=== PATIENT | female | born 1975 | race Caucasian/White ===

== ENCOUNTER 2016-07-15 18:12 | Emergency (ER) | payer OTHER ==
[2016-07-15] MEDS ORDERED: BACIGUENT PACKET TP ONE (18:19)
[2016-07-15] MEDS ORDERED: Adacel Vial IM ONE ×2 (18:19→18:25)
[2016-07-15] MEDS ORDERED: MOTRIN 600 MG PO ONE (18:20)
[2016-07-15] MEDS ORDERED: BACIGUENT PACKET ONE (18:25)
[2016-07-15] MEDS ORDERED: MOTRIN 600 MG ONE (18:25)
--- NOTE | 2016-07-15 18:26 | ERPHSYRPT ---
- History of Present Illness Time Seen by Provider: 07/15/16 18:19 Source: patient, family Physician History: CC: redness right wrist Hx: 41 y/o healthy pt of [facility]. She was using a brace with icy hot for tendonitis. Might have spilled something in it. Unsure last tetanus vaccine. States not . Occurred today. Extremities Pain Location: wrist: right - Review of Systems Constitutional: No Fever Skin: Skin Lesions Neurological: No Focal Weakness, No Parasthesia - Past Medical History Pertinent Past Medical History: No - Social History Patient Lives Alone: No - Physical Exam General Appearance: alert Eyes, Ears, Nose, Throat Exam: moist mucous membranes Neck Exam: supple Cardiovascular/Respiratory Exam: normal breath sounds, regular rate/rhythm Neuro/Tendon Exam: normal sensation, normal motor functions Mental Status Exam: alert, oriented x 3, cooperative Skin Exam: warm, dry, other (2 non-circumferential patches of redness with some mild blistering on right wrist. Good pulse. ) - Course Nursing assessment & vital signs reviewed: Yes Ordered Tests: Active Orders 24 hr Category Date Time Status Wound Care STAT Care 07/15/16 18:19 Active Medication Summary Generic Name Dose Route Start Last Admin Trade Name Freq PRN Reason Stop Dose Admin Bacitracin 0.9 gm 07/15/16 18:19 Baciguent Packet TP 07/15/16 18:20 STAT ONE Diphtheria/Tetanus/Acell Pertussis 0.5 ml 07/15/16 18:19 Adacel Vial IM 07/15/16 18:20 .ONCE ONE Ibuprofen 600 mg 07/15/16 18:20 Motrin 600 Mg PO 07/15/16 18:21 STAT ONE - Progress Progress Note: 07/15/16 18:25 Will treat as burn. Can not rule out contact allergy or frictional trauma. Counseled pt/family regarding: diagnosis, need for follow-up - Departure Time of Disposition: 18:26 Departure Disposition: Home Clinical Impression: Burn of right wrist Qualifiers: Encounter type: initial encounter Burn degree: first degree Qualified Code(s): T23.171A - Burn of first degree of right wrist, initial encounter Condition: Stable Critical Care Time: No Referrals: SAMMI COUGHLIN, [employer] [Primary Care Provider] - Instructions: Take Care of a Burn Additional Instructions: Cleanse twice a day and apply polysporin ointment. Ibuprofen as directed for discomfort. Stop brace and icy hot. Prescriptions: Bacitracin/Polymyxin B Sulfate [Polysporin Ointment] 28.3 gm TP BID #1 oint...g.
[2016-07-15 18:48] VITALS: BP 134/70; PULSE 73; O2SAT 100
== END 2016-07-15 18:50 | disposition home or self-care (01) ==
LOC: ED 18:12
DX: T23.171A Burn of first degree of right wrist, initial encounter (principal)
CPT/HCPCS: 90471; 90715; 99283; 99284

== ENCOUNTER 2017-02-28 11:16 | Emergency (ER) | payer SELFPAY ==
[2017-02-28] MEDS ORDERED: Xylocaine 2%-Epi 1:100,000 MDV IJ ONE ×2 (12:59→13:00)
--- NOTE | 2017-02-28 13:39 | ERPHSYRPT ---
- History of Present Illness Time Seen by Provider: 02/28/17 12:43 Source: patient Patient Subjective Stated Complaint: abscess to top of forehead Triage Nursing Assessment: ambulated to room per self. skin w/d, color normal, resp eay. large pecan size abscess noted to top of mid forehead. no drainage noted. Physician History: CC: forehead cyst Hx: 42 y/o paient with no local doctor. She has hx of scalp cysts. Noted anterior forehead cyst inside hairline was growing and sore yesterday, much worse this AM. She came to ER. It is red, painful. No fever. She was unsure last tetanus vaccine but computer reports this year. All to PCN but able to take keflex. Timing/Duration: yesterday Allergies/Adverse Reactions: Penicillins Allergy (Verified 02/28/17 12:18) Hx Tetanus, Diphtheria Vaccination/Date Given: No Hx Influenza Vaccination/Date Given: No Hx Pneumococcal Vaccination/Date Given: No - Review of Systems Constitutional: No Fever, No Chills Eyes: No Vision Changes, No Double Vision Skin: Skin Lesions - Past Medical History Pertinent Past Medical History: Yes Cardiac History: Hypertension - Past Surgical History Past Surgical History: Yes Female Surgical History: Section, Tubal Ligation - Social History Smoking Status: Current every day smoker How long have you smoked: 15 Exposure to second hand smoke: Yes Drug Use: none Patient Lives Alone: No - Nursing Vital Signs Nursing Vital Signs: Initial Vital Signs Temperature 97.7 F 02/28/17 12:11 Pulse Rate 93 H 02/28/17 12:11 Respiratory Rate 16 02/28/17 12:11 Blood Pressure 165/96 02/28/17 12:11 O2 Sat by Pulse Oximetry 96 02/28/17 12:11 Pain Scale Pain Intensity 2 - Physical Exam General Appearance: alert Eye Exam: PERRL/EOMI Ears, Nose, Throat Exam: normal ENT inspection, moist mucous membranes Neck Exam: normal inspection, non-tender, supple Respiratory Exam: normal breath sounds Cardiovascular Exam: regular rate/rhythm Extremity Exam: normal inspection, normal range of motion Neurologic Exam: alert, oriented x 3, cooperative Skin Exam: warm, dry, other (large anterior scalp cyst with infection, tense, skin necrosis, inside hairline, red under tension) SpO2 Interpretation: normal SpO2: 96 Oxygen Delivery: Room Air Procedures - Incision and Drainage Site: anterior scalp Anesthesia: 2% Lidocaine (with epi 5ml) cc's of anesthesia: 4 Blade Size: scalpel I & D Procedure: betadine prep Results: large amount pus Progress: The cyst was infected. Drainage accomplished with blade. The cyst wall was then extracted in pieces. Pt aware of need for wound care and scarring possibility. The central area of skin was necrotic. Sent cyst for pathology and wound culture. - Course Nursing assessment & vital signs reviewed: Yes Ordered Tests: Active Orders 24 hr Category Date Time Status Wound Care STAT Care 02/28/17 12:59 Active CULTURE,WOUND Stat Lab 02/28/17 12:59 Ordered Medication Summary Discontinued Medications Generic Name Dose Route Start Last Admin Trade Name Jamesq PRN Reason Stop Dose Admin Lidocaine/Epinephrine 5 ml 02/28/17 12:59 Xylocaine 2%-Epi 1:100,000 Mdv IJ 02/28/17 13:00 STAT ONE Lidocaine/Epinephrine Confirm 02/28/17 13:00 Xylocaine 2%-Epi 1:100,000 Mdv Administered 02/28/17 13:01 Dose 1 ml IJ .STK-MED ONE - Departure Time of Disposition: 13:38 Departure Disposition: Home Clinical Impression: Infected sebaceous cyst of skin Condition: Stable Critical Care Time: No Referrals: DOCTOR,NO FAMILY [NON-STAFF PHY W/O PRIVILEGES] - Instructions: Incision and Drainage of a Skin Abscess Additional Instructions: Rx keflex. Rx bactrim. Ibuprofen as needed for pain. Follow up with family doctor next week. Return for worsening. Prescriptions: Cephalexin Mh 500 mg [Keflex 500 mg] 1 cap PO QID #28 capsule Smz/Tmp Ds Tablet [Bactrim Ds Tablet] 1 udtab PO BID #14 tablet
[2017-02-28 13:47] VITALS: BP 150/60; PULSE 88; O2SAT 98
== END 2017-02-28 13:45 | disposition home or self-care (01) ==
LOC: ED 11:16
DX: L72.3 Sebaceous cyst (principal)
CPT/HCPCS: 36415; 87070; 99283